=== PATIENT | female | born 1940 | race Caucasian/White ===

== ENCOUNTER 2018-06-17 13:46 | Inpatient (IN) ==
[2018-06-17 14:45] LABS: Basophils % 0.2 % (0.0-0.8); Eosinophils # 0.1 10*3/uL (0.0-0.87); Eosinophils % 0.4 % (0.00-10.9); Hemoglobin 15.4 GM/DL (12.0-16.0); Immature Granulocytes Absolute 0.13 #; Lymphocytes # 1.7 10*3/uL (1.4-4.0); Lymphocytes % 12.9 % (21.3-54.2); Mean Corpuscular Hemoglobin 31 PG (27-34); Mean Corpuscular Volume 87.8 FL (87-102); Mean Platelet Volume 10.4 FL (9.6-12.0); Monocytes # 1.1 10*3/uL (0.11-0.8); Monocytes % 8.2 % (1.7-12.7); Neutrophils # 10.1 10*3/uL (1.4-7.4); Neutrophils % 77.3 % (38.7-73.9); Platelet Count 406 T/CUMM (130-400); Red Blood Count 5.01 MC/CUMM (3.8-5.5); Red Cell Distribution Width 13.9 % (9.3-17.3)
[2018-06-17 14:59] LABS: INR 1.1; PT Patient Result 11.2 SECS; Partial Thromboplastin Time 29.2 SECS (0-40)
[2018-06-17 15:30] LABS: Bilirubin,Total 0.9 MG/DL (0.2-1.0); Calcium 8.3 MG/DL (8.5-10.1); Osmolality,Calculated 267.5 MOS/KG (273-304); Potassium 3.5 MMOL/L (3.5-5.1); Thyroid Stimulating Hormone 1.36 uIU/ml (0.358-3.74); Total Protein 6.3 G/DL (6.4-8.3)
[2018-06-17 16:07] LABS: Apearance,Urine CLEAR (Clear); Bacteria,Urine Many /HPF (Few); Bilirubin,Urine Negative (Negative); Blood, Urine Negative (Negative); Glucose,Urine (UA) Negative (Negative); Ketones,Urine Negative (Negative); Mucus,Urine Few /LPF (Occasional); Nitrite,Urine Negative (Negative); Protein,Urine Negative; RBC,Urine 1 /HPF (0-4); Squamous Epithelial Cell,Urine Occasional /HPF (0-10); Urine Color Yellow (Yellow); Urine Specific Gravity 1.014 (1.001-1.035); Urine Urobilinogen < 2.0 EU/DL (0.2-1.0); WBC,Urine 3 /HPF (0-6)
[2018-06-17 16:11] LABS: Barbiturates Screen,Urine Negative (Negative); Benzodiazepines Screen,Urine Negative (Negative); Cannabinoid Screen,Urine Negative (Negative); Opiate Screen,Urine Negative (Negative); Phencyclidine Screen,Urine Negative (Negative)
[2018-06-17 17:31] LABS: ABG Base Excess -2.9 MMOL/L (-2.5-2.5); ABG Oxygen Saturation 98.5 % (95-100); ABG PCO2 26.2 MM HG (35-48); ABG PH 7.469 (7.35-7.45); ABG TCO2 16.1 MMOL/L (23-27)
[2018-06-18 06:19] LABS: Risk Ratio 4.97; VLDL CHOLESTEROL 28.2 MG/DL
[2018-06-18 06:27] LABS: Albumin 2.6 G/DL (3.4-5.0); Basophils % 0.3 % (0.0-0.8); Bilirubin,Total 0.8 MG/DL (0.2-1.0); Calcium 8.4 MG/DL (8.5-10.1); Eosinophils # 0.1 10*3/uL (0.0-0.87); Eosinophils % 0.8 % (0.00-10.9); Hematocrit 46.5 VOL% (35.7-47.0); Hemoglobin 15.6 GM/DL (12.0-16.0); Immature Granulocytes % 1.2 %; Immature Granulocytes Absolute 0.15 #; Mean Corpuscular HGB Conc 33.5 GM/DL (32-36); Mean Corpuscular Hemoglobin 31 PG (27-34); Mean Platelet Volume 11.7 FL (9.6-12.0); Monocytes # 1.1 10*3/uL (0.11-0.8); Neutrophils # 9.2 10*3/uL (1.4-7.4); Neutrophils % 72.7 % (38.7-73.9); Osmolality,Calculated 263.7 MOS/KG (273-304); Platelet Count 268 T/CUMM (130-400); Potassium 4.3 MMOL/L (3.5-5.1); Red Blood Count 5.11 MC/CUMM (3.8-5.5); White Blood Count 12.6 T/CUMM (4-12)
[2018-06-18 10:03] LABS: Troponin I 0.292 NG/ML (0.00-0.045)
[2018-06-18 15:52] LABS: Troponin I 0.289 NG/ML (0.00-0.045)
[2018-06-19 04:25] LABS: Basophils # 0.1 10*3/uL (0.0-0.2); Basophils % 0.5 % (0.0-0.8); Eosinophils # 0.2 10*3/uL (0.0-0.87); Eosinophils % 1.4 % (0.00-10.9); Hematocrit 40.5 VOL% (35.7-47.0); Hemoglobin 14.1 GM/DL (12.0-16.0); Immature Granulocytes % 0.8 %; Immature Granulocytes Absolute 0.09 #; Lymphocytes % 18.8 % (21.3-54.2); Mean Corpuscular HGB Conc 34.8 GM/DL (32-36); Mean Corpuscular Hemoglobin 31 PG (27-34); Mean Corpuscular Volume 88.2 FL (87-102); Mean Platelet Volume 11.7 FL (9.6-12.0); Monocytes # 1.1 10*3/uL (0.11-0.8); Monocytes % 10.2 % (1.7-12.7); Neutrophils # 7.2 10*3/uL (1.4-7.4); Neutrophils % 68.3 % (38.7-73.9); Platelet Count 249 T/CUMM (130-400); Red Blood Count 4.59 MC/CUMM (3.8-5.5); Red Cell Distribution Width 13.9 % (9.3-17.3); White Blood Count 10.6 T/CUMM (4-12)
[2018-06-19 08:31] LABS: Albumin 2.7 G/DL (3.4-5.0); Bilirubin,Total 0.6 MG/DL (0.2-1.0); Calcium 8.4 MG/DL (8.5-10.1); Osmolality,Calculated 266.2 MOS/KG (273-304); Potassium 3.3 MMOL/L (3.5-5.1); Total Protein 5.8 G/DL (6.4-8.3)
[2018-06-20 04:37] LABS: Basophils % 0.4 % (0.0-0.8); Eosinophils # 0.2 10*3/uL (0.0-0.87); Eosinophils % 1.8 % (0.00-10.9); Hematocrit 39.2 VOL% (35.7-47.0); Hemoglobin 13.5 GM/DL (12.0-16.0); Immature Granulocytes % 1.1 %; Immature Granulocytes Absolute 0.11 #; Lymphocytes # 1.9 10*3/uL (1.4-4.0); Lymphocytes % 19.1 % (21.3-54.2); Mean Corpuscular HGB Conc 34.4 GM/DL (32-36); Mean Corpuscular Hemoglobin 30 PG (27-34); Mean Corpuscular Volume 87.5 FL (87-102); Mean Platelet Volume 11.6 FL (9.6-12.0); Monocytes # 1.1 10*3/uL (0.11-0.8); Monocytes % 11.2 % (1.7-12.7); Neutrophils # 6.5 10*3/uL (1.4-7.4); Neutrophils % 66.4 % (38.7-73.9); Platelet Count 347 T/CUMM (130-400); Red Blood Count 4.48 MC/CUMM (3.8-5.5); Red Cell Distribution Width 13.8 % (9.3-17.3); White Blood Count 9.8 T/CUMM (4-12)
[2018-06-20 05:11] LABS: Albumin 2.8 G/DL (3.4-5.0); Bilirubin,Total 0.9 MG/DL (0.2-1.0); Calcium 8.3 MG/DL (8.5-10.1); Osmolality,Calculated 268.1 MOS/KG (273-304); Potassium 3.3 MMOL/L (3.5-5.1); Total Protein 5.6 G/DL (6.4-8.3)
[2018-06-22 04:44] LABS: Basophils % 0.4 % (0.0-0.8); Eosinophils # 0.1 10*3/uL (0.0-0.87); Eosinophils % 1.4 % (0.00-10.9); Hematocrit 38.9 VOL% (35.7-47.0); Hemoglobin 13.8 GM/DL (12.0-16.0); Immature Granulocytes % 1.2 %; Immature Granulocytes Absolute 0.12 #; Lymphocytes # 2.6 10*3/uL (1.4-4.0); Lymphocytes % 26.1 % (21.3-54.2); Mean Corpuscular HGB Conc 35.5 GM/DL (32-36); Mean Corpuscular Hemoglobin 31 PG (27-34); Mean Corpuscular Volume 85.9 FL (87-102); Mean Platelet Volume 11.9 FL (9.6-12.0); Monocytes % 9.6 % (1.7-12.7); Neutrophils # 6.2 10*3/uL (1.4-7.4); Neutrophils % 61.3 % (38.7-73.9); Platelet Count 330 T/CUMM (130-400); Red Blood Count 4.53 MC/CUMM (3.8-5.5); Red Cell Distribution Width 13.4 % (9.3-17.3)
[2018-06-22 05:21] LABS: Osmolality,Calculated 250.4 MOS/KG (273-304); Potassium 3.2 MMOL/L (3.5-5.1)
[2018-06-23 04:03] LABS: Basophils % 0.3 % (0.0-0.8); Eosinophils # 0.1 10*3/uL (0.0-0.87); Hematocrit 38.1 VOL% (35.7-47.0); Hemoglobin 13.6 GM/DL (12.0-16.0); Immature Granulocytes % 0.9 %; Immature Granulocytes Absolute 0.11 #; Lymphocytes # 2.5 10*3/uL (1.4-4.0); Lymphocytes % 19.3 % (21.3-54.2); Mean Corpuscular HGB Conc 35.7 GM/DL (32-36); Mean Corpuscular Hemoglobin 31 PG (27-34); Mean Corpuscular Volume 85.4 FL (87-102); Monocytes # 1.1 10*3/uL (0.11-0.8); Monocytes % 8.9 % (1.7-12.7); Neutrophils # 8.8 10*3/uL (1.4-7.4); Neutrophils % 69.6 % (38.7-73.9); Platelet Count 316 T/CUMM (130-400); Red Blood Count 4.46 MC/CUMM (3.8-5.5); Red Cell Distribution Width 13.4 % (9.3-17.3); White Blood Count 12.7 T/CUMM (4-12)
[2018-06-23 04:09] LABS: Calcium 7.9 MG/DL (8.5-10.1); Osmolality,Calculated 248.5 MOS/KG (273-304); Potassium 3.5 MMOL/L (3.5-5.1)
[2018-06-24 04:17] LABS: Basophils % 0.4 % (0.0-0.8); Eosinophils # 0.1 10*3/uL (0.0-0.87); Eosinophils % 1.1 % (0.00-10.9); Hematocrit 36.2 VOL% (35.7-47.0); Immature Granulocytes % 1.2 %; Immature Granulocytes Absolute 0.12 #; Lymphocytes # 2.3 10*3/uL (1.4-4.0); Lymphocytes % 23.5 % (21.3-54.2); Mean Corpuscular HGB Conc 35.9 GM/DL (32-36); Mean Corpuscular Hemoglobin 31 PG (27-34); Mean Corpuscular Volume 86.6 FL (87-102); Mean Platelet Volume 11.9 FL (9.6-12.0); Monocytes # 0.9 10*3/uL (0.11-0.8); Monocytes % 9.1 % (1.7-12.7); Neutrophils # 6.3 10*3/uL (1.4-7.4); Neutrophils % 64.7 % (38.7-73.9); Platelet Count 291 T/CUMM (130-400); Red Blood Count 4.18 MC/CUMM (3.8-5.5); Red Cell Distribution Width 13.2 % (9.3-17.3); White Blood Count 9.7 T/CUMM (4-12)
[2018-06-24 04:50] LABS: Calcium 7.9 MG/DL (8.5-10.1); Osmolality,Calculated 255.9 MOS/KG (273-304); Potassium 3.1 MMOL/L (3.5-5.1)
[2018-06-25 05:09] LABS: Basophils % 0.3 % (0.0-0.8); Eosinophils # 0.1 10*3/uL (0.0-0.87); Eosinophils % 1.2 % (0.00-10.9); Hematocrit 36.4 VOL% (35.7-47.0); Hemoglobin 12.7 GM/DL (12.0-16.0); Immature Granulocytes % 1.1 %; Lymphocytes # 2.3 10*3/uL (1.4-4.0); Lymphocytes % 25.8 % (21.3-54.2); Mean Corpuscular HGB Conc 34.9 GM/DL (32-36); Mean Corpuscular Hemoglobin 31 PG (27-34); Mean Corpuscular Volume 87.3 FL (87-102); Mean Platelet Volume 12.3 FL (9.6-12.0); Monocytes % 11.1 % (1.7-12.7); Neutrophils # 5.4 10*3/uL (1.4-7.4); Neutrophils % 60.5 % (38.7-73.9); Platelet Count 286 T/CUMM (130-400); Red Blood Count 4.17 MC/CUMM (3.8-5.5); Red Cell Distribution Width 14.2 % (9.3-17.3); White Blood Count 8.9 T/CUMM (4-12)
[2018-06-25 05:36] LABS: Calcium 8.1 MG/DL (8.5-10.1); Osmolality,Calculated 264.4 MOS/KG (273-304); Potassium 4.5 MMOL/L (3.5-5.1)
[2018-06-25 08:15] VITALS: BP 142/69
== END 2018-06-25 11:29 | DRG 643 ==
LOC: EDBD → EDUNIT# → N.ED 13:46 → SUATTDRO 16:17 → N.EDINP 16:17 → N.TELES 18:51
PROVIDERS: ADMIT Internal Medicine; ATTEND Internal Medicine

== ENCOUNTER 2018-12-05 23:52 | Observation (INO) ==
[2018-12-06] MEDS ORDERED: metroNIDAZOLE INJ 500 MG in PREMIX 1 EACH IV STA (00:13)
[2018-12-06] MEDS ORDERED: ONDANSETRON 4 MG/2 ML VIAL IV STA (00:13)
[2018-12-06] MEDS ORDERED: SODIUM CHLORIDE 0.9% 500 ML IV STA (00:13)
[2018-12-06 01:06] LABS: Basophils # 0.1 10*3/uL (0.0-0.2); Basophils % 0.5 % (0.0-0.8); Eosinophils # 0.1 10*3/uL (0.0-0.87); Eosinophils % 0.9 % (0.00-10.9); Hematocrit 39.4 VOL% (35.7-47.0); Hemoglobin 12.9 GM/DL (12.0-16.0); Immature Granulocytes % 1.1 %; Immature Granulocytes Absolute 0.14 #; Lymphocytes # 1.8 10*3/uL (1.4-4.0); Lymphocytes % 14.4 % (21.3-54.2); Mean Corpuscular HGB Conc 32.7 GM/DL (32-36); Mean Corpuscular Hemoglobin 30 PG (27-34); Mean Platelet Volume 10.8 FL (9.6-12.0); Monocytes # 1.3 10*3/uL (0.11-0.8); Monocytes % 10.5 % (1.7-12.7); Neutrophils # 9.3 10*3/uL (1.4-7.4); Neutrophils % 72.6 % (38.7-73.9); Platelet Count 372 T/CUMM (130-400); Red Blood Count 4.33 MC/CUMM (3.8-5.5); Red Cell Distribution Width 13.2 % (9.3-17.3); White Blood Count 12.8 T/CUMM (4-12)
[2018-12-06 01:32] LABS: Alanine Aminotransferase 13 U/L (13-56); Albumin 2.8 G/DL (3.4-5.0); Alkaline Phosphatase 95 U/L (45-117); Amylase 19 U/L (25-115); Aspartate Amino Transferase 13 U/L (0-37); Blood Urea Nitrogen 23 MG/DL (7-18); Calcium 8.6 MG/DL (8.5-10.1); Glucose 109 MG/DL (74-106); Potassium 3.3 MMOL/L (3.5-5.1); Sodium 136 MMOL/L (136-145); Total Protein 6.7 G/DL (6.4-8.3); Troponin I < 0.015 NG/ML (0.00-0.045)
[2018-12-06 02:07] LABS: Apearance,Urine Slightly Hazy (Clear); Glucose,Urine (UA) Negative (Negative); Ketones,Urine Negative (Negative); Nitrite,Urine Negative (Negative); Protein,Urine 30 MG/DL; Urine Color Amber (Yellow)
[2018-12-06 02:08] LABS: Bilirubin,Urine 2+ mg/dL (Negative); Blood, Urine Negative (Negative); Hyaline Casts,Urine 11 /LPF (0-3); Mucus,Urine Moderate /LPF (Occasional); RBC,Urine 3 /HPF (0-4); Squamous Epithelial Cell,Urine Occasional /HPF (0-10); WBC,Urine 71 /HPF (0-6)
[2018-12-06] MEDS ORDERED: diphenhydrAMINE CAP 25 MG CAPSULE PO PRN (04:11)
[2018-12-06] MEDS ORDERED: traZODone 50 MG TABLET PO PRN (04:11)
[2018-12-06] MEDS ORDERED: MORPHINE 4 MG/1 ML VIAL IV PRN (04:11)
[2018-12-06] MEDS ORDERED: ONDANSETRON 4 MG/2 ML VIAL IV PRN (04:11)
[2018-12-06] MEDS ORDERED: ACETAMINOPHEN 325 MG TABLET PO PRN ×2 (04:11→18:05)
[2018-12-06] MEDS: LEVOFLOXACIN INJ 750 MG in PREMIX 1 EACH IV SCH (05:29)
[2018-12-06] MEDS: POTASSIUM CHLORIDE 20 MEQ TABLET PO PRN ×3 (07:19→12:07)
[2018-12-06] MEDS: ALBUTEROL/IPRATROPIUM 3 ML NEB RESP TX SCH ×5 (07:40→23:30)
[2018-12-06] MEDS: PANTOPRAZOLE 40 MG TABLET PO SCH (09:00)
[2018-12-06] MEDS ORDERED: SIMVASTATIN 40 MG TABLET PO SCH (21:00)
[2018-12-06] MEDS: CILOSTAZOL 100 MG TABLET PO SCH (22:01)
[2018-12-06] MEDS: COLESEVELAM 625 MG TABLET PO SCH ×2 (22:02→22:07)
[2018-12-06] MEDS: LOSARTAN 50 MG TABLET PO SCH (22:02)
[2018-12-06] MEDS: FAMOTIDINE 20 MG TABLET PO SCH (22:02)
[2018-12-06] MEDS: CIPROFLOXACIN 0.3% OPH SOLN 2.5 ML BOTTLE BOTH EYES SCH (22:03)
[2018-12-06] MEDS: METOPROLOL TARTRATE 100 MG TABLET PO SCH (22:03)
[2018-12-07] MEDS: CIPROFLOXACIN 0.3% OPH SOLN 2.5 ML BOTTLE BOTH EYES SCH ×4 (02:02→13:55)
[2018-12-07] MEDS: ALBUTEROL/IPRATROPIUM 3 ML NEB RESP TX SCH ×4 (03:00→14:36)
[2018-12-07 04:44] LABS: Basophils % 0.3 % (0.0-0.8); Eosinophils # 0.1 10*3/uL (0.0-0.87); Hematocrit 30.2 VOL% (35.7-47.0); Hemoglobin 9.8 GM/DL (12.0-16.0); Immature Granulocytes % 1.1 %; Immature Granulocytes Absolute 0.11 #; Lymphocytes % 18.9 % (21.3-54.2); Mean Corpuscular HGB Conc 32.5 GM/DL (32-36); Mean Corpuscular Hemoglobin 30 PG (27-34); Mean Corpuscular Volume 91.5 FL (87-102); Mean Platelet Volume 11.1 FL (9.6-12.0); Monocytes # 1.1 10*3/uL (0.11-0.8); Monocytes % 10.3 % (1.7-12.7); Neutrophils # 7.2 10*3/uL (1.4-7.4); Neutrophils % 68.4 % (38.7-73.9); Platelet Count 309 T/CUMM (130-400); Red Cell Distribution Width 13.5 % (9.3-17.3); White Blood Count 10.5 T/CUMM (4-12)
[2018-12-07 04:59] LABS: Calcium 8.3 MG/DL (8.5-10.1); Osmolality,Calculated 271.7 MOS/KG (273-304)
[2018-12-07] MEDS: LEVOFLOXACIN INJ 750 MG in PREMIX 1 EACH IV SCH (05:36)
[2018-12-07] MEDS ORDERED: LEVOTHYROXINE 50 MCG TABLET PO SCH (06:30)
[2018-12-07] MEDS ORDERED: CLOPIDOGREL 75 MG TABLET PO SCH (09:00)
[2018-12-07] MEDS ORDERED: POTASSIUM CHLORIDE 20 MEQ TABLET PO SCH (09:00)
[2018-12-07] MEDS ORDERED: ASPIRIN CHEW 81 MG TABLET PO SCH (09:00)
[2018-12-07] MEDS ORDERED: predniSONE 1 MG TABLET PO SCH (09:00)
[2018-12-07] MEDS ORDERED: CHOLECALCIFEROL 1,000 UNIT TABLET PO SCH (09:00)
[2018-12-07] MEDS: LOSARTAN 50 MG TABLET PO SCH (10:18)
[2018-12-07] MEDS: COLESEVELAM 625 MG TABLET PO SCH (10:19)
[2018-12-07] MEDS: FAMOTIDINE 20 MG TABLET PO SCH (10:21)
[2018-12-07] MEDS: CILOSTAZOL 100 MG TABLET PO SCH (10:21)
[2018-12-07] MEDS: METOPROLOL TARTRATE 100 MG TABLET PO SCH (10:23)
[2018-12-07] MEDS: PANTOPRAZOLE 40 MG TABLET PO SCH (10:24)
[2018-12-07 17:08] VITALS: BP 122/52
[2018-12-07] MEDS ORDERED: LIDOCAINE 5% PATCH TRANSDERM SCH (18:00)
== END 2018-12-07 17:10 | disposition home or self-care (01) ==
LOC: N.EDINP 23:52 → N.ED 23:52 → N.3E 12-06 04:37
PROVIDERS: ADMIT Internal Medicine; ATTEND Internal Medicine

== ENCOUNTER 2022-04-13 21:13 | Inpatient (IN) ==
[2022-04-13] MEDS ORDERED: PANTOPRAZOLE INJ 80 MG in SODIUM CHLORIDE 0.9% 100 ML IV STA (22:08)
[2022-04-13] MEDS ORDERED: SODIUM CHLORIDE 0.9% 1,000 ML IV STA (22:08)
[2022-04-13 22:15] LABS: Basophils % 0.4 % (0.0-0.8); Eosinophils # 0.3 10*3/uL (0.0-0.87); Eosinophils % 2.7 % (0.00-10.9); Hematocrit 21.8 VOL% (35.7-47.0); Hemoglobin 6.5 GM/DL (12.0-16.0); Immature Granulocytes % 0.5 %; Immature Granulocytes Absolute 0.05 #; Lymphocytes # 1.3 10*3/uL (1.4-4.0); Lymphocytes % 13.7 % (21.3-54.2); Mean Corpuscular HGB Conc 29.8 GM/DL (32-36); Mean Corpuscular Volume 76.8 FL (87-102); Mean Platelet Volume 10.4 FL (9.6-12.0); Monocytes # 0.8 10*3/uL (0.11-0.8); Monocytes % 9.2 % (1.7-12.7); Neutrophils % 73.5 % (38.7-73.9); Platelet Count 377 T/CUMM (130-400); Red Blood Count 2.84 MC/CUMM (3.8-5.5); White Blood Count 9.1 T/CUMM (4-12)
[2022-04-13 22:26] LABS: INR 1.1; PT Patient Result 12.4 SECS (10.5-12.0); Partial Thromboplastin Time 29.6 SECS (23.7-32.9)
[2022-04-13] MEDS ORDERED: PANTOPRAZOLE 40 MG VIAL IV ONE (22:27)
[2022-04-13 22:47] LABS: Alanine Aminotransferase 10 U/L (13-56); Albumin 2.7 G/DL (3.4-5.0); Alkaline Phosphatase 82 U/L (45-117); Aspartate Amino Transferase 12 U/L (0-37); Bilirubin,Total < 0.39 MG/DL (0.20-1.00); Blood Urea Nitrogen 17 MG/DL (7-18); Calcium 7.7 MG/DL (8.5-10.1); Carbon Dioxide 21 MMOL/L (21-32); Chloride 110 MMOL/L (98-107); Glucose 150 MG/DL (74-106); Osmolality,Calculated 283.4 MOS/KG (273-304); Sodium 140 MMOL/L (136-145); Total Protein 4.9 G/DL (6.4-8.2)
[2022-04-13] MEDS ORDERED: GLUCAGON 1 MG VIAL IM PRN (23:27)
[2022-04-13 23:28] LABS: Bacteria,Urine Occasional /HPF (Few); Hyaline Casts,Urine 1 /LPF (0-3); Mucus,Urine Occasional /LPF (Occasional); RBC,Urine <1 /HPF (0-4); Squamous Epithelial Cell,Urine Occasional /HPF (0-10); Waxy Casts,Urine 3 /LPF (<1)
[2022-04-13 23:29] LABS: Urine Color Yellow (Yellow)
[2022-04-13 23:30] LABS: Bilirubin,Urine Negative (Negative); Blood, Urine Trace mg/dL (Negative); Glucose,Urine (UA) Negative (Negative); Ketones,Urine Trace mg/dL (Negative); Nitrite,Urine Positive (Negative); Protein,Urine Negative (Negative); Urine Appearance SL CLOUDY (Clear); Urine Specific Gravity 1.025 (1.001-1.035)
[2022-04-13] MEDS ORDERED: ONDANSETRON 4 MG/2 ML VIAL IV PRN (23:35)
[2022-04-13] MEDS ORDERED: SIMETHICONE CHEW 125 MG TABLET PO PRN (23:35)
[2022-04-13] MEDS ORDERED: SODIUM CHLORIDE 0.9% 1,000 ML IV PRN (23:41)
[2022-04-13] MEDS ORDERED: DEXTROSE 10% 250 ML BAG IV PRN (23:51)
[2022-04-14] MEDS ORDERED: FUROSEMIDE 40 MG/4 ML VIAL IV ONE (01:42)
[2022-04-14] MEDS: PANTOPRAZOLE INJ 200 MG in SODIUM CHLORIDE 0.9% 250 ML IV SCH (02:24)
[2022-04-14] MEDS: LEVOTHYROXINE 50 MCG TABLET PO SCH (06:27)
[2022-04-14] MEDS: INSULIN REGULAR 100 UNIT/ML SUBCUT SCH ×4 (08:29→20:10)
[2022-04-14] MEDS ORDERED: LACTATED RINGERS 1,000 ML IV SCH (10:00)
[2022-04-14] MEDS ORDERED: propofoL 200 MG/20 ML VIAL IV ONE (13:13)
[2022-04-14] MEDS ORDERED: LIDOCAINE 2% 5 ML VIAL ONE (13:13)
[2022-04-14 14:58] LABS: Basophils % 0.4 % (0.0-0.8); Eosinophils # 0.2 10*3/uL (0.0-0.87); Eosinophils % 1.6 % (0.00-10.9); Hematocrit 38.1 VOL% (35.7-47.0); Hemoglobin 12.3 GM/DL (12.0-16.0); Immature Granulocytes % 0.4 %; Immature Granulocytes Absolute 0.04 #; Lymphocytes # 1.3 10*3/uL (1.4-4.0); Lymphocytes % 13.1 % (21.3-54.2); Mean Corpuscular HGB Conc 32.3 GM/DL (32-36); Mean Corpuscular Volume 77.3 FL (87-102); Mean Platelet Volume 9.7 FL (9.6-12.0); Monocytes % 10.8 % (1.7-12.7); Neutrophils % 73.7 % (38.7-73.9); Platelet Count 390 T/CUMM (130-400); Red Blood Count 4.93 MC/CUMM (3.8-5.5); Red Cell Distribution Width 16.5 % (9.3-17.3); White Blood Count 9.6 T/CUMM (4-12)
[2022-04-14 15:16] LABS: Calcium 8.5 MG/DL (8.5-10.1); Osmolality,Calculated 274.5 MOS/KG (273-304); Potassium 3.3 MMOL/L (3.5-5.1)
[2022-04-14] MEDS: FUROSEMIDE 20 MG TABLET PO SCH (16:05)
[2022-04-14] MEDS: POTASSIUM CHLORIDE 10 MEQ TABLET PO SCH (16:05)
[2022-04-14] MEDS: DOCUSATE SODIUM 100 MG CAPSULE PO SCH ×2 (16:05→20:36)
[2022-04-14] MEDS: LACTATED RINGERS 1,000 ML IV SCH ×2 (16:06→16:39)
[2022-04-14] MEDS: ACETAMINOPHEN 325 MG TABLET PO PRN (16:20)
[2022-04-14] MEDS ORDERED: POTASSIUM CHLORIDE RIDER 10 MEQ/100 ML PREMIX IV PRN (19:18)
[2022-04-14] MEDS ORDERED: POTASSIUM CHLORIDE 20 MEQ TABLET PO PRN (19:18)
[2022-04-14] MEDS ORDERED: MAGNESIUM SULF RIDER 4 GM/100 ML PREMIX IV PRN (19:18)
[2022-04-14] MEDS ORDERED: MAGNESIUM SULF RIDER 2 GM/50 ML PREMIX IV PRN (19:18)
[2022-04-14] MEDS: CITALOPRAM 20 MG TABLET PO SCH (20:35)
[2022-04-14] MEDS: SIMVASTATIN 40 MG TABLET PO SCH (20:36)
[2022-04-15] MEDS: LEVOTHYROXINE 50 MCG TABLET PO SCH (05:36)
[2022-04-15 05:48] LABS: Basophils % 0.3 % (0.0-0.8); Eosinophils # 0.1 10*3/uL (0.0-0.87); Eosinophils % 0.9 % (0.00-10.9); Hematocrit 36.4 VOL% (35.7-47.0); Hemoglobin 11.6 GM/DL (12.0-16.0); Immature Granulocytes % 0.6 %; Immature Granulocytes Absolute 0.07 #; Lymphocytes % 8.3 % (21.3-54.2); Mean Corpuscular HGB Conc 31.9 GM/DL (32-36); Mean Corpuscular Volume 78.1 FL (87-102); Mean Platelet Volume 9.9 FL (9.6-12.0); Monocytes # 0.9 10*3/uL (0.11-0.8); Monocytes % 7.3 % (1.7-12.7); Neutrophils % 82.6 % (38.7-73.9); Platelet Count 339 T/CUMM (130-400); Red Blood Count 4.66 MC/CUMM (3.8-5.5); Red Cell Distribution Width 16.4 % (9.3-17.3); White Blood Count 12.5 T/CUMM (4-12)
[2022-04-15 06:06] LABS: Calcium 8.2 MG/DL (8.5-10.1); Potassium 3.1 MMOL/L (3.5-5.1)
[2022-04-15] MEDS: PANTOPRAZOLE INJ 200 MG in SODIUM CHLORIDE 0.9% 250 ML IV SCH (07:15)
[2022-04-15] MEDS: INSULIN REGULAR 100 UNIT/ML SUBCUT SCH ×4 (07:46→21:39)
[2022-04-15] MEDS ORDERED: POTASSIUM CHLORIDE 20 MEQ TABLET PO ONE ×2 (08:40→12:00)
[2022-04-15] MEDS: LOSARTAN 50 MG TABLET PO SCH (09:45)
[2022-04-15] MEDS: FUROSEMIDE 20 MG TABLET PO SCH (09:46)
[2022-04-15] MEDS: POTASSIUM CHLORIDE 10 MEQ TABLET PO SCH (09:46)
[2022-04-15] MEDS: DOCUSATE SODIUM 100 MG CAPSULE PO SCH ×2 (09:47→21:40)
[2022-04-15] MEDS: PANTOPRAZOLE 40 MG TABLET PO SCH ×2 (09:47→21:40)
[2022-04-15] MEDS: cefTRIAXone 1,000 MG in SODIUM CHLORIDE 0.9% 100 ML IV SCH (09:47)
[2022-04-15] MEDS: ACETAMINOPHEN 325 MG TABLET PO PRN ×2 (09:51→21:40)
[2022-04-15] MEDS: CITALOPRAM 20 MG TABLET PO SCH (21:40)
[2022-04-15] MEDS: SIMVASTATIN 40 MG TABLET PO SCH (21:40)
[2022-04-16 05:28] LABS: Basophils % 0.5 % (0.0-0.8); Eosinophils # 0.2 10*3/uL (0.0-0.87); Eosinophils % 2.6 % (0.00-10.9); Hematocrit 38.2 VOL% (35.7-47.0); Hemoglobin 11.9 GM/DL (12.0-16.0); Immature Granulocytes % 0.5 %; Immature Granulocytes Absolute 0.04 #; Lymphocytes # 1.2 10*3/uL (1.4-4.0); Lymphocytes % 13.8 % (21.3-54.2); Mean Corpuscular HGB Conc 31.2 GM/DL (32-36); Mean Corpuscular Volume 78.6 FL (87-102); Mean Platelet Volume 10.1 FL (9.6-12.0); Monocytes # 1.2 10*3/uL (0.11-0.8); Monocytes % 13.9 % (1.7-12.7); Neutrophils % 68.7 % (38.7-73.9); Platelet Count 354 T/CUMM (130-400); Red Blood Count 4.86 MC/CUMM (3.8-5.5); Red Cell Distribution Width 16.6 % (9.3-17.3); White Blood Count 8.4 T/CUMM (4-12)
[2022-04-16 05:36] LABS: Calcium 8.5 MG/DL (8.5-10.1); Osmolality,Calculated 267.1 MOS/KG (273-304); Potassium 4.7 MMOL/L (3.5-5.1)
[2022-04-16] MEDS: INSULIN REGULAR 100 UNIT/ML SUBCUT SCH ×4 (09:12→21:41)
[2022-04-16] MEDS: POTASSIUM CHLORIDE 10 MEQ TABLET PO SCH (10:24)
[2022-04-16] MEDS: FUROSEMIDE 20 MG TABLET PO SCH (10:24)
[2022-04-16] MEDS: PANTOPRAZOLE 40 MG TABLET PO SCH ×2 (10:24→21:04)
[2022-04-16] MEDS: LOSARTAN 50 MG TABLET PO SCH (10:24)
[2022-04-16] MEDS: DOCUSATE SODIUM 100 MG CAPSULE PO SCH ×2 (10:24→21:04)
[2022-04-16] MEDS: LEVOTHYROXINE 50 MCG TABLET PO SCH (10:25)
[2022-04-16] MEDS: ACETAMINOPHEN 325 MG TABLET PO PRN ×2 (10:25→18:52)
[2022-04-16] MEDS: cefTRIAXone 1,000 MG in SODIUM CHLORIDE 0.9% 100 ML IV SCH (10:26)
[2022-04-16] MEDS: ERTAPENEM 1,000 MG in SODIUM CHLORIDE 0.9% 100 ML IV SCH (18:28)
[2022-04-16] MEDS: CITALOPRAM 20 MG TABLET PO SCH (21:04)
[2022-04-16] MEDS: SIMVASTATIN 40 MG TABLET PO SCH (21:04)
[2022-04-17 05:51] LABS: Basophils % 0.4 % (0.0-0.8); Eosinophils # 0.3 10*3/uL (0.0-0.87); Eosinophils % 3.2 % (0.00-10.9); Hematocrit 39.8 VOL% (35.7-47.0); Hemoglobin 12.5 GM/DL (12.0-16.0); Immature Granulocytes % 0.7 %; Immature Granulocytes Absolute 0.06 #; Lymphocytes # 1.2 10*3/uL (1.4-4.0); Lymphocytes % 13.2 % (21.3-54.2); Mean Corpuscular HGB Conc 31.4 GM/DL (32-36); Mean Corpuscular Volume 78.2 FL (87-102); Mean Platelet Volume 9.7 FL (9.6-12.0); Monocytes # 1.2 10*3/uL (0.11-0.8); Monocytes % 12.9 % (1.7-12.7); Neutrophils % 69.6 % (38.7-73.9); Platelet Count 388 T/CUMM (130-400); Red Blood Count 5.09 MC/CUMM (3.8-5.5); Red Cell Distribution Width 17.2 % (9.3-17.3); White Blood Count 9.2 T/CUMM (4-12)
[2022-04-17 06:05] LABS: Calcium 8.5 MG/DL (8.5-10.1); Osmolality,Calculated 267.1 MOS/KG (273-304); Potassium 3.7 MMOL/L (3.5-5.1)
[2022-04-17] MEDS: ACETAMINOPHEN 325 MG TABLET PO PRN (06:08)
[2022-04-17] MEDS: LEVOTHYROXINE 50 MCG TABLET PO SCH (06:08)
[2022-04-17] MEDS: INSULIN REGULAR 100 UNIT/ML SUBCUT SCH ×4 (08:07→20:24)
[2022-04-17] MEDS: LOSARTAN 50 MG TABLET PO SCH (08:56)
[2022-04-17] MEDS: DOCUSATE SODIUM 100 MG CAPSULE PO SCH ×2 (08:56→22:11)
[2022-04-17] MEDS: PANTOPRAZOLE 40 MG TABLET PO SCH ×2 (08:56→22:11)
[2022-04-17] MEDS: FUROSEMIDE 20 MG TABLET PO SCH (08:56)
[2022-04-17] MEDS: POTASSIUM CHLORIDE 10 MEQ TABLET PO SCH (08:56)
[2022-04-17] MEDS: ERTAPENEM 1,000 MG in SODIUM CHLORIDE 0.9% 100 ML IV SCH (14:24)
[2022-04-17] MEDS: SIMVASTATIN 40 MG TABLET PO SCH (22:11)
[2022-04-17] MEDS: CITALOPRAM 20 MG TABLET PO SCH (22:12)
[2022-04-18 04:56] LABS: Basophils # 0.1 10*3/uL (0.0-0.2); Basophils % 0.5 % (0.0-0.8); Eosinophils # 0.4 10*3/uL (0.0-0.87); Eosinophils % 4.8 % (0.00-10.9); Hematocrit 37.2 VOL% (35.7-47.0); Hemoglobin 11.8 GM/DL (12.0-16.0); Immature Granulocytes % 0.8 %; Immature Granulocytes Absolute 0.07 #; Lymphocytes # 1.4 10*3/uL (1.4-4.0); Lymphocytes % 14.9 % (21.3-54.2); Mean Corpuscular HGB Conc 31.7 GM/DL (32-36); Mean Platelet Volume 10.2 FL (9.6-12.0); Monocytes # 1.2 10*3/uL (0.11-0.8); Monocytes % 13.3 % (1.7-12.7); Neutrophils % 65.7 % (38.7-73.9); Platelet Count 378 T/CUMM (130-400); Red Blood Count 4.71 MC/CUMM (3.8-5.5); Red Cell Distribution Width 17.5 % (9.3-17.3); White Blood Count 9.1 T/CUMM (4-12)
[2022-04-18 05:12] LABS: Calcium 8.2 MG/DL (8.5-10.1); Potassium 3.9 MMOL/L (3.5-5.1)
[2022-04-18] MEDS: LEVOTHYROXINE 50 MCG TABLET PO SCH (06:19)
[2022-04-18] MEDS: INSULIN REGULAR 100 UNIT/ML SUBCUT SCH ×3 (08:05→16:05)
[2022-04-18] MEDS: DOCUSATE SODIUM 100 MG CAPSULE PO SCH (08:55)
[2022-04-18] MEDS: FUROSEMIDE 20 MG TABLET PO SCH (08:55)
[2022-04-18] MEDS: LOSARTAN 50 MG TABLET PO SCH (08:55)
[2022-04-18] MEDS: POTASSIUM CHLORIDE 10 MEQ TABLET PO SCH (08:56)
[2022-04-18] MEDS: PANTOPRAZOLE 40 MG TABLET PO SCH (08:56)
[2022-04-18] MEDS ORDERED: MELOXICAM 7.5 MG TABLET PO SCH (11:00)
[2022-04-18] MEDS: ERTAPENEM 1,000 MG in SODIUM CHLORIDE 0.9% 100 ML IV SCH (13:59)
[2022-04-18 16:32] VITALS: BP 140/49
== END 2022-04-18 17:59 | DRG 378 ==
LOC: EDUNIT# → N.ED 21:13 → SUATTDRO 23:27 → N.5E 23:27
PROVIDERS: ADMIT Family Medicine; ATTEND Emergency Medicine